=== PATIENT | female | born 1990 | race Caucasian/White ===

== ENCOUNTER 2017-12-19 10:46 | Day surgery (SDC) | payer MEDICAID, SELFPAY ==
[2017-12-19] VITALS (8 sets, daily range): BP systolic 95–125; BP diastolic 50–83; PULSE 77–103; RESP 16; TEMP 36.3–37.3; O2SAT 96–100; BMI 28.6
[2017-12-19 11:58] LABS: Pregnancy, Serum, hCG Quali. NEGATIVE Negative (0-9 Nonpreg)
--- NOTE | 2017-12-19 13:51 | DCINST_ITS ---
Discharge Diet: Light diet - advance as tolerated Discharge Activity: Return to Normal Activity Instructions: Shock Wave Lithotripsy Allergies/Adverse Reactions: Allergies hydrocodone bitartrate [From Vicodin] Adverse Reaction (Verified 11/25/17 11:57) Nausea/Vom/Diarrhea ibuprofen Adverse Reaction (Verified 11/25/17 11:57) ABDOMINAL PAIN Medications to take at Discharge Ciprofloxacin [Cipro] 500 mg PO BID #6 tab 12/19/17 Hydrocodone/Acetaminophen [[place] 5-325 Tablet] 1 ea PO Q4H PRN PRN 5 Days #14 tab 12/19/17 The following prescriptions were given: Hydrocodone/Acetaminophen [[place] 5-325 Tablet] 1 ea PO Q4H PRN PRN 5 Days #14 tab PRN Reason: Pain Ciprofloxacin [Cipro] 500 mg PO BID #6 tab Primary Care Physician: Ming Vail MD [Primary Care Provider] - Please Follow Up With: James Rodirguez MD When: please call to make an appointment.
[2017-12-19] MEDS: Lubricating Jelly 60 GM Tube 30 GM TOPICAL (13:58)
--- NOTE | 2017-12-19 14:26 | PCM.OPRPT ---
Problem List (1) Calculus of left kidney Status: Acute Report of Operation Date of Procedure: 12/19/17 Pre-Operative Diagnosis: Left kidney stone status post stent placement Post-Operative Diagnosis: Same Surgery/Procedure Performed:: Left ESWL and cystoscopy and left stent removal. Description of Surgical Findings:: 27-year-old female was taken back to the operating room after smooth induction of general anesthesia she was placed supine on the lithotripter table we then located the stone in the pelvis of the left kidney and delivered a total of 2500 shockwaves to the stone at the completion of the treatment the stone had broken up a little pieces but could not really visibly see any more significant fragments under x-ray. Patient was then positioned for cystoscopy. With the legs in stirrups. The urethra and vaginal area were prepped and draped in usual sterile fashion went into the bladder with a 21 [place] rigid cystourethroscope grabbed the existing stent and pulled it out. Then at this point we checked the kidney again under x-ray there is no major fragments are seen the stone were broken up really nicely patient anesthetic was reversed and she was taken back to the PACU in good condition she will follow-up in a few weeks with a KUB. Type of Anesthesia:: General Drains: removed stent - Admit VTE Documentation VTE Present on Admission: No VTE Mechan Device Prophylaxis: SCD's
[2017-12-19] MEDS: Ketorolac 15 MG/ML Vial IV (15:14)
== END 2017-12-19 16:27 | disposition home or self-care (01) ==
LOC: SDC 10:47 → AC 10:49
PROVIDERS: Anesthesiology; Family Provider Family Medicine; PCP Family Medicine; Visit Provider Urology
PROC: (CPT 50590; principal; 2017-12-19 12:40)
DX: N20.0 Calculus of kidney (principal); F17.200 Nicotine dependence, unspecified, uncomplicated
CPT/HCPCS: 00873; 50590; 84703; J7120; J2405

== ENCOUNTER → 2017-12-30 08:45 | Outpatient (CLI) | payer MEDICAID, SELFPAY | PROVIDERS: Family Provider Family Medicine; PCP Family Medicine; Visit Provider Nurse Practitioner Adult Health | DX: N20.0 Calculus of kidney (principal) ==

== ENCOUNTER → 2019-06-23 | Outpatient (CLI) | payer MEDICAID, SELFPAY ==
[2017-12-19 11:09] VITALS: BMI 28.6
[2019-06-24 10:00] LABS: Hepatitis B Surface Antigen Non-Reactive (Nonreactive)
[2019-06-24 10:05] LABS: Hepatitis C Antibody REACTIVE (Nonreactive)
[2019-06-24 13:31] LABS: AST(SGOT) 11 U/L (15-37); Alanine Aminotransfer ALT/SGPT 14 U/L (13-56); Albumin, Serum 3.3 g/dL (3.2-5.0); Alkaline Phosphatase 77 U/L (45-117); Bilirubin, Direct 0.09 mg/dL (0.00-0.30); Globulin 3.8 g/dL (2.2-4.2); Protein, Total 7.1 g/dL (6.4-8.2)
== END | disposition home or self-care (01) ==
LOC: LAB 14:13
PROVIDERS: Family Provider Family Medicine; PCP Family Medicine
DX: R63.0 Anorexia (principal); R53.81 Other malaise; R11.0 Nausea
CPT/HCPCS: 36415; 80076; 86803; 87340; 87521

== ENCOUNTER 2022-05-18 09:32 | Emergency (ER) | payer MEDICAID, SELFPAY ==
[2022-05-18 09:33] VITALS: BP 141/97; PULSE 93; RESP 16; TEMP 36.6; O2SAT 98; BMI 42.5
--- NOTE | 2022-05-18 09:42 | RAD_ITS ---
STUDY: X-RAY - LUMBAR SPINE REASON FOR EXAM: Female, 31 years old. Trauma TECHNIQUE: 4 view(s) of the lumbar spine were obtained. COMPARISON: Lumbar spine x-ray dated October 22, 2016 FINDINGS: Normal lumbar lordosis. There is no substantial scoliosis. There is a normal alignment of the vertebrae. Normal vertebral bodies minimal endplate spurring is present at several levels. The disc space is narrowed at the L1-L2 level. The remaining disc spaces are preserved. No fracture or compression deformity is seen. The soft tissue structures are unremarkable. RAD/L/S Spine Min 4 Views IMPRESSION: Minimal degenerative changes of the lumbar spine. Electronically Signed: Musa Farmer MD at 10:45 EDT ,
--- NOTE | 2022-05-18 09:43 | EDS_ITS ---
HPI History of Present Illness Chief Complaint: Head Injury Informant: patient Narrative Narrative: Patient was at a campsite yesterday. She slipped and fell on mud. She landed on her lower back and hit her head. No loss of consciousness. No visual change. No nausea or vomiting. No numbness tingling weakness upper or lower extremities. No change in urination or bowel habits. She has mild pain at the back of her head. Most of her pain is down in the low lumbar sacral area. But she is able to walk and move around. She has allergy to ibuprofen causing abdominal pain but she was taking Advil last night with no symptoms of discomfort. PFSH PFSH Medical History no medical history Home Medications ciprofloxacin HCl 500 mg tablet 500 mg PO BID #6 tabs 12/19/17 [Rx Last Taken Unknown] hydrocodone-acetaminophen 5-325mg 5mg-325mg 1 ea PO Q4H PRN PRN Pain 5 days #14 tabs 12/19/17 [Rx Last Taken Unknown] cyclobenzaprine 10 mg tablet 10 mg PO BID PRN muscle spasm #10 tabs 05/18/22 [Rx Last Taken Unknown] Allergy/AdvReac Type Severity Reaction Status Date / Time hydrocodone bitartrate AdvReac Nausea/Vom/ Verified 05/18/22 09:34 [From Vicodin] Diarrhea ibuprofen AdvReac ABDOMINAL Verified 05/18/22 09:34 PAIN Family History no significant family his Social History Smoking Status: Current every day smoker tobacco type: cigarettes ROS ROS ED Constitutional Constitutional ED: Denies fever(s) Eyes Eyes: Denies blurry vision or change in vision ENT ENT ED: Denies ear pain or rhinorrhea Cardiovascular Cardiovascular: Denies chest pain or palpitations Respiratory/Chest Respiratory/Chest: Denies dyspnea Gastrointestinal Gastrointestinal: Denies abdominal pain, nausea or vomiting Genitourinary Genitourinary ED: Denies dysuria, hematuria or urinary frequency Musculoskeletal Musculoskeletal: Reports back pain; Denies neck pain Neurologic Neurologic: Reports headache(s); Denies paresthesias or weakness Endocrine Endocrinology: Denies polydipsia or polyuria Hematologic/Lymphatic Hematologic/Lymphatic: Reports other Details: No anticoagulation. ; Denies easy bleeding or easy bruising Allergic/Immunologic Allergic/Immunologic ED: Denies urticaria EXAM Physical Exam Const Vital Signs: 05/18/22 09:33 Temperature 97.9 F Temperature Source Temporal Pulse Rate 93 Respiratory Rate 16 Blood Pressure 141/97 H Blood Pressure Mean 111 Pulse Ox 98 Oxygen Delivery Method Room Air Positive well nourished HEENT HEENT Narrative: There is mild scalp tenderness in the back but no step-off. I see no bruising at this time. atraumatic Eyes PERRL and EOMs intact bilaterally General Eye ED: Yes other Other Details: No photophobia. Range of motion is normal. Pupillary responses normal Neck full ROM Neck Narrative: No tenderness. No pain with. General: Negative for tenderness Resp normal respiratory effort and clear to auscultation bilaterally Cardio regular rhythm and no murmurs Rate: regular rate GI normal to inspection, nondistended, normoactive bowel sounds and non-tender Narrative: No CVA tender Back/Spine normal to inspection Back/Spine Narrative: There is tattoo in the lower back but I see no abrasions or contusions at this time. There is some mild nonfocal lower lumbar and upper sacral tenderness. No crepitance with motion. Gait is okay. She can get up off the bed move around easily. Extremity normal to inspection General Extremety ED: Negative for deformity General Extremity: Negative for deformity Neuro oriented x3 MDM MDM MDM Narrative Medical decision making narrative: 4 view x-ray lumbar spine read by me and read by radiology shows no sign of acute fracture. Patient will take Advil. She feels though she is getting some spasm I will try some muscle relaxants on her. We discussed reasons to return. Radiography Diagnostic Testing: Clinical Impression(s) from Imaging Studies Lumbar Spine X-Ray 05/18/22 09:42 IMPRESSION: Minimal degenerative changes of the lumbar spine. Electronically Signed: Musa Farmer MD at 10:45 EDT Reading Location ID and State: [facility] / [place] , Service support , Discharge Plan Triage Chief Complaint: Head Injury ED Provider: Jere Blackburn Dx/Rx/DC Orders Clinical Impression: Fall from slipping, Contusion of back, CHI (closed head injury) Instructions: ED Back Contusion Prescriptions: New cyclobenzaprine 10 mg tablet 10 mg PO BID PRN (Reason: muscle spasm) Qty: 10 0RF No Action hydrocodone-acetaminophen 1 EACH tablet 1 ea PO Q4H PRN PRN (Reason: Pain) 5 Days Qty: 14 0RF ciprofloxacin HCl 500 MG tablet 500 mg PO BID Qty: 6 0RF Primary Care Provider: Ming Vail Referrals: Ming Vail MD [Primary Care Provider] - 1 Week if not improving Disposition Disposition: Home, Self Care
== END 2022-05-18 11:04 | disposition home or self-care (01) ==
PROVIDERS: Emergency Provider Emergency Medicine; PCP Family Medicine; Visit Provider Emergency Medicine
DX: S09.90XA Unspecified injury of head, initial encounter (principal); S30.0XXA Contusion of lower back and pelvis, initial encounter; F17.210 Nicotine dependence, cigarettes, uncomplicated; W01.0XXA Fall on same level from slipping, tripping and stumbling without subsequent striking against object, initial encounter
CPT/HCPCS: 72110; 99282

== ENCOUNTER 2025-06-27 11:49 | Emergency (ER) | payer SELFPAY ==
[2025-06-27 11:50] VITALS: BP 142/104; PULSE 109; RESP 18; TEMP 36.4; O2SAT 98; BMI 47.1
[2025-06-27 12:52] LABS: Hematocrit 41.3 % (37-47); Hemoglobin 13.3 g/dL (12.0-15.0); Immature Granulocytes Count 0.100 X10^3/uL (0.0-0.0); Mean Corp Hgb Conc 32.2 g/dL (32-36); Mean Corpuscular Volume 83.1 fL (81-99); Mean Platelet Vol. 9.3 fl (6.2-12.0); NRBC Flagged by Analyzer 0 % (0-5); Platelet Count 483 K/mm3 (150-450); RBC Distribution Width CV 14.6 % (11.6-14.6); RBC Distribution Width SD 44.1 fl (35.1-43.9); Red Blood Count 4.97 M/mm3 (4.2-5.4); White Blood Count 16.4 K/mm3 (4.4-11.0)
[2025-06-27 13:13] LABS: AST(SGOT) 21 U/L (<=31); Alanine Aminotransfer ALT/SGPT 27 U/L (<=34); Albumin, Serum 3.6 g/dL (3.5-5.0); Alkaline Phosphatase 97 U/L (35-104); Anion Gap 11 (5-15); BUN 11 mg/dL (4-19); BUN/Creat Ratio 13.1 RATIO (10-20); Bilirubin, Direct 0.15 mg/dL (0.00-0.30); Calcium,Total 9.0 mg/dL (7.6-11.0); Carbon Dioxide 22.8 mmol/L (21.0-32.0); Chloride 102 mmol/L (98-108); Estimated Creatinine Clearance 119.65 ml/min (50-250); Globulin 3.3 g/dL (2.2-4.2); Glucose 116 mg/dL (70-99); Lipase 86 U/L (13-75); Potassium 3.6 mmol/L (3.3-5.1)
[2025-06-27 13:18] LABS: Mucous, Urine 0 SEEN /hpf (<or=2+); Red Blood Cells-Urine 0 SEEN /hpf (0-5)
[2025-06-27 13:31] LABS: Color, Urine Yellow (Yellow); Glucose, Dipstick Normal (Normal); Ketone-Dipstick Negative (Negative); Leukocyte Esterase-Dipstick 500 /ul (Negative); Nitrite-Dipstick Negative (Negative); Occult Blood-Urine 10 /ul (Negative); Protein-Dipstick 15 mg/dl (Negative); Specific Gravity, Urine 1.010 (1.002-1.030); Urine Bilirubin Dipstick Negative (Negative)
[2025-06-27] MEDS: 0.9% Normal Saline (1000mL) 1,000 ML 999 ML IV (13:32)
[2025-06-27 13:37] LABS: Squamous Epithelial Cells - UA 0-5 SEEN /hpf (5-10)
[2025-06-27 13:38] LABS: Internal QC Validated? YES +Cl - CLEAR BKGD; Pregnancy, Urine Negative Negative; Record Kit Lot#,Urine Preg 0000962302
--- NOTE | 2025-06-27 13:55 | CT_ITS ---
PROCEDURE: ABDOMEN/PELVIS W IV CONT ONLY 06/27/2025 REASON FOR EXAM: EPIGASTRIC ABD PAIN Nausea and diarrhea. History of kidney stones. TECHNIQUE: ABDOMEN/PELVIS W IV CONT ONLY Coronal and Sagittal reconstruction series were provided. CONTRAST: Isovue 3 7 VOLUME: 100 mL One or more dose reduction techniques were used (e.g., Automated exposure control, adjustment of the mA and/or kV according to patient size, use of iterative reconstruction technique. RADIATION DOSE SUMMARY: CTDlvol: 20.35 mGy DLP: 1363.79 mGycm COMPARISON: None FINDINGS: Lung bases: Minimal increased markings at the lung bases suggestive of linear atelectasis. Liver: Normal size. No mass. Gallbladder: Surgically absent. Spleen: Normal size. Pancreas: Normal size without evidence of mass surrounding inflammation or ductal dilation. Adrenals: Unremarkable Kidneys: Punctate calculus in the lower posterior pole of the right kidney. No evidence of hydronephrosis. No renal mass is seen. Bladder: Unremarkable Reproductive Organs: There is a 5.8 cm by 6.3 cm by 5 cm predominantly cystic mass in the right ovary. There is also evidence of a 2.4 cm cyst in the left ovary. The uterus appears to be unremarkable. Correlation with pelvic sonography recommended for further evaluation. Bowel: Unremarkable Appendix: Unremarkable Lymph nodes: None Vasculature: Mild diffuse atherosclerotic calcifications are noted. Peritoneum / Retroperitoneum: Unremarkable Bones: No significant abnormality is seen. CT/Abdomen/Pelvis W IV Cont ONLY IMPRESSION: 5.8 cm 6.3 cm 5 cm predominantly cystic mass in the right ovary. 2.4 cm cyst i n the left ovary. Correlation with pelvic sonogram recommended. Status post cholecystectomy. Reading Location: [id number]
[2025-06-27 14:30] VITALS: BP 142/92; PULSE 85; RESP 17; O2SAT 100
[2025-06-27 16:05] VITALS: BP 139/78; PULSE 80; RESP 15; TEMP 37.2; O2SAT 100
--- NOTE | 2025-06-27 16:12 | ED.VIS.GI ---
HPI HPI - GI History of Present Illness Chief Complaint: Abd Pain Informant: patient Narrative Narrative: Patient is a 35-year-old female with history of kidney stones, cholecystectomy presenting from home for epigastric abdominal pain, nausea and diarrhea. Symptoms started on Friday, 3 days ago. She was recently on a course of prednsione for sciatica and thinks her stomach. She had episode of vomiting on Friday but none since. She has been nauseous. States eats makes it better. It is worse with eating and she has early satiety feeling. States it is a burning pain that is constant which ultimately get a sharp pain in her epigastric region as well. She denies any black or blood in her stool. She did develop watery diarrhea today. Denies any fever. Any urinary symptoms. States the pain reminds her when she needed her gallbladder out. No other complaints or concerns at this time. [facility] Medical History (Updated 06/27/25 @ 16:[address] Yelena Ramesh, DO) Calculus of left kidney Hydronephrosis, left Left ureteral calculus Home Medications ?Medication ?Instructions ?Recorded ?Last Taken ?Type meclizine 25 mg chewable tablet 25 mg PO PRN DIZZINESS 06/27/25 Unknown History (Emy) omeprazole 20 mg capsule,delayed 20 mg PO BID #30 caps 06/27/25 Unknown Rx release ondansetron 4 mg disintegrating 4 mg PO Q8H PRN PRN Nausea #10 tabs 06/27/25 Unknown Rx tablet Allergy/AdvReac Type Severity Reaction Status Date / Time hydrocodone bitartrate (From AdvReac Nausea/Vom/ Verified 06/27/25 11:50 Vicodin) Diarrhea ibuprofen AdvReac ABDOMINAL Verified 06/27/25 11:50 PAIN Surgical History (Updated 06/27/25 @ 12:06 by Daniela Cruz) Hx of cholecystectomy Social History (Updated 06/27/25 @ 12:06 by Daniela Cruz) household members: spouse Smoking Status: Current every day smoker tobacco type: cigarettes ROS ROS ED Constitutional Constitutional ED: Denies chills or fever(s) Cardiovascular Cardiovascular: Denies chest pain Respiratory/Chest Respiratory/Chest: Denies cough or dyspnea Gastrointestinal Gastrointestinal: Reports abdominal pain, diarrhea, nausea and vomiting Musculoskeletal Musculoskeletal: Denies arthralgias or myalgias Integumentary Denies rash Neurologic Neurologic: Denies weakness Psychiatric Psychiatric: Denies suicidal thoughts EXAM Physical Exam Const Vital Signs: 06/27/25 11:50 06/27/25 14:30 06/27/25 16:05 Temperature 97.5 F L 98.9 F Temperature Source Temporal Pulse Rate 109 H 85 80 Respiratory Rate 18 17 15 Blood Pressure 142/104 H 142/92 H 139/78 H Blood Pressure Mean 116 108 98 Pulse Ox 98 100 100 Oxygen Delivery Method Room Air Room Air Positive well nourished and well developed General Appearance ED: well developed and NAD; Negative for pallor HEENT Reports moist mucous membranes Eyes General Eye ED: Negative for scleral icterus Neck supple Resp normal respiratory effort and clear to auscultation bilaterally Cardio regular rate and regular rhythm GI non-distended GI Narrative: Negative Prince sign Auscultation: normoactive bowel sounds Palpation: soft and tender epigastric; Negative for guarding, rigid or mass Neuro moves all extremities Sensorium / Orientation: alert Motor Exam: Negative for general weakness Psych mental status grossly normal and thought process normal Skin no wounds General Skin Exam: Negative for jaundice or pallor MDM MDM MDM Narrative Medical decision making narrative: Patient evaluated for nausea, vomiting x 1, diarrhea that started today and epigastric abdominal pain. Differential includes choledocholithiasis, pancreatitis, gastritis, peptic ulcer disease, small bowel obstruction and colitis as well as renal colic (suspect this is less likely). Patient given IV morphine, Zofran and fluids. Patient states that morphine action made her pain worse. Patient was given IV Dilaudid. Question if she had some spasm of her sphincter of Oddi made worse by the morphine. She does have a leukocytosis of 16.4 with no left shift. Had a CMP normal. Low suspicion for choledocholithiasis with these labs. Lipase is mildly elevated 86. Urinalysis shows 1+ bacteria but only 0-5 white blood cells. This is not consistent with infection. Urine is negative. CT of the abdomen and pelvis shows cyst of the right ovary however no other acute process. Patient was informed of the cyst and need for gynecology follow-up. She is not tender in her right lower quadrant. And counseled on return precautions including severe pain in that area because of risk of torsion. Counseled on the need for outpatient follow-up as well to ensure that she does not have a malignancy. Suspect it is more of a physiologic cyst however. Patient is also given GI cocktail with improvement of her symptoms. Did consider C. difficile however she is only on diarrhea for 1 day with no fever and no further diarrhea in the emergency room. Son report any recent antibiotics. Patient given GI cocktail with improvement of her symptoms. Patient be discharged home to follow-up with GI. Started on PPI therapy. And Zofran. Given return precautions. She is agreeable plan of care. Lab Data Attestation: I reviewed the patient's lab results. Labs: Laboratory Results - last 24 hr 06/27/25 06/27/25 12:45 13:12 WBC 16.4 H RBC 4.97 Hgb 13.3 Hct 41.3 MCV 83.1 MCH 26.8 L MCHC 32.2 RDW Std Deviation 44.1 H RDW Coeff of Dwain 14.6 Plt Count 483 H MPV 9.3 Immature Gran % (Auto) 0.600 Neut % (Auto) 71.0 H Lymph % (Auto) 18.5 L Catron % (Auto) 7.1 Eos % (Auto) 2.1 Baso % (Auto) 0.7 Absolute Neuts (auto) 11.6 H Absolute Lymphs (auto) 3.04 Nucleated RBC % 0 Sodium 136 Potassium 3.6 Chloride 102 Carbon Dioxide 22.8 Anion Gap 11 BUN 11 Creatinine 0.81 Estim Creat Clear Calc 119.65 Est GFR (MDRD) Non-Af 96 BUN/Creatinine Ratio 13.1 Glucose 116 H Calcium 9.0 Total Bilirubin 0.32 Direct Bilirubin 0.15 AST 21 ALT 27 Alkaline Phosphatase 97 Total Protein 7.0 Albumin 3.6 Globulin 3.3 Lipase 86 H Urine Color Yellow Urine Clarity Sl. Cloudy Urine pH 6.0 Ur Specific [place] 1.010 Urine Protein 15 H Urine Glucose (UA) Normal Urine Ketones Negative Urine Occult Blood 10 H Urine Nitrite Negative Urine Bilirubin Negative Urine Urobilinogen Normal Ur Leukocyte Esterase 500 H Urine RBC 0 SEEN Urine WBC 0-5 SEEN Ur Squamous Epith Cells 0-5 SEEN Urine Bacteria 1+ Urine Mucus 0 SEEN Urine Test Negative Radiography Diagnostic Testing: Clinical Impression(s) from Imaging Studies Abdomen/Pelvis CT 06/27/25 13:55 IMPRESSION: 5.8 cm 6.3 cm 5 cm predominantly cystic mass in the right ovary. 2.4 cm cyst in the left ovary. Correlation with pelvic sonogram recommended. Status post cholecystectomy. Reading Location: [id number] Discharge Plan Triage Chief Complaint: Abd Pain ED Provider: Yelena Ramesh Dx/Rx/DC Orders Clinical Impression: Abdominal pain, epigastric, Diarrhea, Leukocytosis, Ovarian cyst Instructions: ED Diarrhea, Unknown Cause, ED Ovarian Cyst, ED Epigastric Pain Uncertain Cause Prescriptions: New ondansetron 4 mg tablet,disintegrating 4 mg PO Q8H PRN PRN (Reason: Nausea) Qty: 10 0RF omeprazole 20 mg capsule,delayed release(DR/EC) 20 mg PO BID Qty: 30 0RF No Action meclizine [Bonine] 25 mg tablet,chewable 25 mg PO PRN Primary Care Provider: Ming Vail Referrals: Ming Vail MD [Primary Care Provider] - Chapito Lane DO [Med Staff - Active Staff] - Bambi Anthony MD [Med Staff - Active Staff] - Activity Restrictions/Additional Instructions: White blood cell count was mildly elevated today. This could be associated with inflammation, acute stress of the body or infection. It is possible he could have some inflammation of your stomach causing your symptoms. Your CT shows a large cyst on the right ovary as well as a smaller cyst on the left ovary. Please follow-up with [facility] and family doctor for outpatient pelvic ultrasound for further evaluation of this and to ensure that it is not cancerous or a tumor. Please follow-up with a GI doctor for your abdominal symptoms. You have been started on an antacid medication to help with your stomach as well as Zofran medicine. You may take Pepto-Bismol [id number] to help with diarrhea and abdominal pain. Please be aware that it will discolor your stools black. Print Language: Citizen Of [place] Disposition Disposition: Home, Self Care Discharge Date/Time: 06/27/25 16:25
== END 2025-06-27 16:25 | disposition home or self-care (01) ==
PROVIDERS: Emergency Provider Emergency Medicine; PCP Family Medicine; Visit Provider Emergency Medicine
DX: R10.13 Epigastric pain (principal); R19.7 Diarrhea, unspecified; D72.829 Elevated white blood cell count, unspecified; F17.210 Nicotine dependence, cigarettes, uncomplicated; N83.201 Unspecified ovarian cyst, right side; R11.0 Nausea; Z90.49 Acquired absence of other specified parts of digestive tract
CPT/HCPCS: 74177; 80048; 80076; 81001; 81025; 83690; 85025; 96361; 96374; 96375; 99283; Q9967; A4216; J2405

== ENCOUNTER → 2025-07-21 | Outpatient (CLI) | payer BC, SELFPAY ==
--- NOTE | 2025-07-21 14:14 | US_ITS ---
PROCEDURE: PELVIC W/ TRANSVAGINAL 07/21/2025 REASON FOR EXAM: R/O TORSION TECHNIQUE: Procedure Code: USPELTVAG Modality: US Procedure: PELVIC W/ TRANSVAGINAL COMPARISON: CT abdomen and pelvis 06/27/2025 FINDINGS: Measurements: Uterus: 7.9 x 3.6 x 4.4 with a volume of 66.0 mL Endometrial Thickness: 8 mm Right Ovary: 8.1 x 7.7 x 6.2 cm with a volume of 203.6 mL. Left Ovary: 2.9 x 2.0 x 1.6 cm with a volume of 4.9 mL. Uterus: Normal size, myometrial echotexture, and contour. Endometrium: Unremarkable. Right ovary: Anechoic cyst measures 6.5 x 5.2 x 6.4 cm. Left ovary: Normal size and echotexture. Other: No large pelvic mass identified. Small amount of free fluid in the pelvic cul-de-sac. US/Pelvic w/ Transvaginal IMPRESSION: 1. Right ovarian cyst measures 6.5 cm. 2. No evidence of ovarian torsion. Reading Location: [facility]
== END | disposition home or self-care (01) ==
LOC: US 14:12
PROVIDERS: PCP Family Medicine; Referring Provider Obstetrics & Gynecology; Visit Provider Obstetrics & Gynecology
DX: R10.9 Unspecified abdominal pain (principal); N83.209 Unspecified ovarian cyst, unspecified side
CPT/HCPCS: 76830; 76856

== ENCOUNTER 2025-07-26 16:37 | Emergency (ER) | payer BC, SELFPAY ==
[2025-07-26 16:38] VITALS: BP 143/93; PULSE 125; RESP 24; TEMP 37; O2SAT 98; BMI 47.2
--- NOTE | 2025-07-26 16:49 | US_ITS ---
PROCEDURE: US TRANSVAGINAL NON- 07/26/2025 REASON FOR EXAM: RIGHT ADNEXAL PAIN, HISTORY 6 CM CYST, R/OH TORSIO TECHNIQUE: Procedure Code: USTVAG Modality: US Procedure: TRANSVAGINAL NON- COMPARISON: Pelvic ultrasound 07/21/2025. Abdominal CT 06/27/2025. FINDINGS: The uterus is retroverted/retroflexed, but appears normal in size and smooth in contour measuring approximately 5.6 x 4.1 x 4 cm. No discrete uterine myoma is seen. No abnormal collection within the uterine cavity. Endometrial stripe complex appears within normal limits measuring up to 0.8 cm. Redemonstrated right ovarian simple anechoic cyst measuring up to 7.1 x 6 x 4.6 cm. Left ovary has a normal sonographic appearance, measuring 2.8 x 1.9 x 1.2 cm. Blood flow is demonstrated within bilateral ovaries on color Doppler, no evidence of torsion. No adnexal mass. Trace nonspecific free fluid in the cul-de-sac. US/Transvaginal Non- IMPRESSION: 1. Redemonstrated simple right ovarian cyst measuring up to 7.1 cm. 2. No evidence for ovarian torsion on this exam. 3. Trace nonspecific free pelvic fluid in the cul-de-sac. Reading Location: [facility]
--- NOTE | 2025-07-26 16:53 | EX.ED.DYSGE1 ---
HPI History of Present Illness Chief Complaint: Abd Pain Detail of Chief Complaint: Congestion, right lower quadrant pain Informant: patient Onset/Context/Timing Onset: - (Suddenly worse this afternoon) Context: Sudden Onset Timing: Continuous Quality: Pain Location: Right lower quadrant/adnexa Current Severity: Moderate Maximum Severity: Severe Worsened by: Movement Relieved by: Nothing Associated Symptoms Associated Symptoms: Nausea and mild upper respiratory tract infectious symptoms Narrative Narrative: Patient a 35-year-old woman she had ultrasounds an outpatient on July 21, 2025. This ultrasound revealed a ovarian cyst measuring 6.5 cm in area there was no evidence of torsion at that time. The ultrasound findings were uterus that was 7.9 x 3.6 x 4.4 cm with a volume of 66 mL. The endometrium was thickened at 8 mm. Right ovary measured 8.1 x 7.7 x 6.2 cm with a volume of 203 mL. Left ovary was 2.9 x 2.0 x 1.6 cm with a volume of 4.9 mL per. Patient states she took a nap. She now has severe right lower quadrant adnexal pain. She denies fever or chills. She denies vomiting or diarrhea. She denies loss of appetite. She states she was placed on medicine to facilitate her menstruation. She has not in spite of completing the course of therapy. She is presently under Dr. Bambi Anthony's care. She denies dysuria, frequency, urgency or hematuria. She denies any back or flank pain. She denies pain referred to her shoulder. She denies orthostatic symptoms. Prior similar symptoms: Yes (Due to right ovarian cyst) Recent Illness/Hospitalization: No [facility] Medical History Calculus of left kidney Hydronephrosis, left Left ureteral calculus Home Medications ?Medication ?Instructions ?Recorded ?Last Taken ?Type meclizine 25 mg chewable tablet 25 mg PO PRN DIZZINESS 06/27/25 Unknown History (Emy) omeprazole 20 mg capsule,delayed 20 mg PO BID #30 caps 06/27/25 Unknown Rx release ondansetron 4 mg disintegrating 4 mg PO Q8H PRN PRN Nausea #10 tabs 06/27/25 Unknown Rx tablet medroxyprogesterone 10 mg tablet 10 mg PO QDAY #10 tabs 07/12/25 Unknown Rx (Provera) naproxen 500 mg tablet 500 mg PO BID #14 tabs 07/26/25 Unknown Rx Allergy/AdvReac Type Severity Reaction Status Date / Time hydrocodone bitartrate (From AdvReac Nausea/Vom/ Verified 07/26/25 16:38 Vicodin) Diarrhea ibuprofen AdvReac ABDOMINAL Verified 07/26/25 16:38 PAIN Family History Grandfather Cancer Grandmother Breast cancer Maternal Grandmother Breast cancer Paternal Surgical History Hx of cholecystectomy Social History household members: spouse current occupational status: employed current occupation: [employer] Smoking Status: Current every day smoker tobacco type: cigarettes alcohol intake: never substance use type: former substance user Date of last use: 7 years clean 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[employer] 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 ROS ROS ED Constitutional Constitutional ED: Denies chills, fever(s) or subjective Eyes Eyes: Denies blurry vision or change in vision ENT ENT ED: Reports sore throat; Denies ear pain or rhinorrhea Cardiovascular Cardiovascular: Denies chest pain or palpitations Respiratory/Chest Respiratory/Chest: Denies cough, dyspnea or dyspnea on exertion Gastrointestinal Gastrointestinal: Reports abdominal pain and nausea; Denies constipation, diarrhea, melena or vomiting Genitourinary Genitourinary ED: Denies dysuria, hematuria or urinary frequency Musculoskeletal Musculoskeletal: Denies arthralgias, back pain, myalgias or neck pain Integumentary Denies abscess, Abrasions or rash Hematologic/Lymphatic Hematologic/Lymphatic: Reports systems reviewed and no addt'l complaints, except as documented EXAM Physical Exam Const Vital Signs: 07/26/25 16:38 07/26/25 18:35 Temperature 98.6 F Temperature Source Temporal Pulse Rate 125 H 96 Respiratory Rate 24 H Blood Pressure 143/93 H 141/59 H Blood Pressure Mean 109 86 Pulse Ox 98 97 Oxygen Delivery Method Room Air Room Air Positive well nourished and well developed Constitutional Narrative: Patient's vital signs are marked for an elevated blood pressure of 143/93, heart rate of 125 and respiratory of 24. BMI is 47.2 General Appearance ED: well developed and NAD; Negative for pallor HEENT Reports TM's clear and dry mucous membranes HEENT Narrative: Head is atraumatic and normocephalic. Ears normal. Nares patent. Posterior pharynx is normal. Uvula is midline. There is no deviation tongue or protrusion Tympanic Membrane ED: Yes TM's clear Mouth ED: Yes dry mucous membranes Mouth: dry mucous membranes Eyes PERRL and EOMs intact bilaterally General Eye ED: Negative for pale conjunctiva or scleral icterus Neck no lymphadenopathy, supple and no JVD Resp normal respiratory effort and clear to auscultation bilaterally Cardio regular rhythm, S1 normal heart sound, S2 normal heart sound and no murmurs Rate: tachycardic GI normal to inspection, nondistended, normoactive bowel sounds, non-distended and no masses; Negative for non-tender or hepatosplenomegaly GI Narrative: Exam is limited due to body habitus. Auscultation: hypoactive bowel sounds Palpation: soft and tender RLQ (A couple of fingerbreadths below McBurney's point.) Narrative: There is no inguinal lymphadenopathy or palpable mass. Back/Spine no CVA tenderness Extremity normal to inspection General Extremety ED: Negative for edema or tenderness General Extremity: Negative for edema Neuro oriented x3, CN's II-XII intact bilaterally and no sensory deficits noted Motor Exam: strength 5/5 throughout Psych mental status grossly normal Skin no rashes or lesions noted, no wounds and skin turgor normal General Skin Exam: elasticity normal; Negative for jaundice or pallor MDM MDM MDM Narrative Medical decision making narrative: Differential diagnosis would be abdominal pain unknown etiology, ruptured ovarian cyst, ovarian torsion. Symptoms not consistent with ureteral/renal lithiasis, urinary tract infection. Doubt this represents appendicitis. Will obtain ultrasound of the pelvis to evaluate for torsion since the size of her cyst is a common size when torsion does occur. Patient was medicated with ketorolac for her pain. Furthermore the fact that it came on abruptly with no against appendicitis. Lab Data Labs: Laboratory Results - last 24 hr 07/26/25 17:50 Urine Color Yellow Urine Clarity Sl. Cloudy Urine pH 6.0 Ur Specific [place] 1.015 Urine Protein 30 H Urine Glucose (UA) Normal Urine Ketones Negative Urine Occult Blood Negative Urine Nitrite Negative Urine Bilirubin Negative Urine Urobilinogen 1 H Ur Leukocyte Esterase 25 H Urine RBC 0-5 SEEN Urine WBC 0-5 SEEN Ur Squamous Epith Cells 0-5 SEEN Urine Bacteria RARE Urine Mucus 1+ Radiography Diagnostic Testing: Clinical Impression(s) from Imaging Studies Transvaginal US 07/26/25 16:49 IMPRESSION: 1. Redemonstrated simple right ovarian cyst measuring up to 7.1 cm. 2. No evidence for ovarian torsion on this exam. 3. Trace nonspecific free pelvic fluid in the cul-de-sac. Reading Location: [facility] Treatment and Re-Evaluation :: Patient was informed of her results. Patient was discharged to home with NSAID for pain since she is a recovering addict. She is to follow-up with Dr. Bambi Anthony Discharge Plan Triage Chief Complaint: Abd Pain ED Provider: Eric Pineda Dx/Rx/DC Orders Clinical Impression: Cyst of right ovary, Right lower quadrant abdominal pain, Elevated blood-pressure reading without diagnosis of hypertension, BMI 45.0-49.9, adult Instructions: ED Ovarian Cyst Prescriptions: New naproxen 500 mg tablet 500 mg PO BID Qty: 14 0RF No Action meclizine [Bonine] 25 mg tablet,chewable 25 mg PO PRN ondansetron 4 mg tablet,disintegrating 4 mg PO Q8H PRN PRN (Reason: Nausea) Qty: 10 0RF omeprazole 20 mg capsule,delayed release(DR/EC) 20 mg PO BID Qty: 30 0RF medroxyprogesterone [Provera] 10 mg tablet 10 mg PO QDAY Qty: 10 9RF Primary Care Provider: Ming Vail Referrals: Ming Vail MD [Primary Care Provider] - Bambi Anthony MD [Med Staff - Active Staff] - 5-7 Days Print Language: Frisian Disposition Disposition: Home, Self Care
[2025-07-26 18:02] LABS: Color, Urine Yellow (Yellow); Glucose, Dipstick Normal (Normal); Ketone-Dipstick Negative (Negative); Leukocyte Esterase-Dipstick 25 /ul (Negative); Nitrite-Dipstick Negative (Negative); Occult Blood-Urine Negative /ul (Negative); Protein-Dipstick 30 mg/dl (Negative); Specific Gravity, Urine 1.015 (1.002-1.030); Urine Bilirubin Dipstick Negative (Negative)
[2025-07-26 18:13] LABS: Mucous, Urine 1+ /hpf (<or=2+); Red Blood Cells-Urine 0-5 SEEN /hpf (0-5); Squamous Epithelial Cells - UA 0-5 SEEN /hpf (5-10)
[2025-07-26 18:35] VITALS: BP 141/59; PULSE 96; O2SAT 97
[2025-07-26 19:04] VITALS: BP 141/59; PULSE 96; RESP 24; TEMP 37; O2SAT 97
== END 2025-07-26 19:07 | disposition home or self-care (01) ==
PROVIDERS: Emergency Provider Emergency Medicine; PCP Family Medicine; Visit Provider Emergency Medicine
DX: R10.31 Right lower quadrant pain (principal); N83.291 Other ovarian cyst, right side; R03.0 Elevated blood-pressure reading, without diagnosis of hypertension; F17.210 Nicotine dependence, cigarettes, uncomplicated; Z90.49 Acquired absence of other specified parts of digestive tract
CPT/HCPCS: 76830; 81001; 96374; 99282; A4216

== ENCOUNTER 2025-08-02 11:17 | Day surgery (SDC) | payer OTHER, SELFPAY ==
[2025-08-02] VITALS (9 sets, daily range): BP systolic 125–153; BP diastolic 78–95; PULSE 77–87; RESP 14–20; TEMP 36.1–36.6; O2SAT 91–97; BMI 46.8
[2025-08-02 11:49] LABS: Internal QC Validated? YES +Cl - CLEAR BKGD; Pregnancy, Urine Negative Negative; Record Kit Lot#,Urine Preg 0000964736
[2025-08-02] MEDS: Lactated Ringers 1,000 ML 15 ML IV (12:38)
[2025-08-02 13:14] LABS: Hematocrit 38.1 % (37-47); Hemoglobin 12.2 g/dL (12.0-15.0); Mean Corp Hgb Conc 32.0 g/dL (32-36); Mean Corpuscular Volume 82.6 fL (81-99); Mean Platelet Vol. 9.4 fl (6.2-12.0); Platelet Count 477 K/mm3 (150-450); RBC Distribution Width CV 14.3 % (11.6-14.6); RBC Distribution Width SD 42.7 fl (35.1-43.9); Red Blood Count 4.61 M/mm3 (4.2-5.4); White Blood Count 13.9 K/mm3 (4.4-11.0)
--- NOTE | 2025-08-02 13:34 | PCM.HP.BLA ---
History and Physical Date of Admission: 08/02/25 Intake Vital Signs 07/26/2516:38 08/01/2515:55 Height 5 ft 3 in 5 ft 3 in Weight: 264 lb 8 oz BMI 46.8 BP 122/85 H Intake Visit Reasons: ER f/u large ovarian cyst r/s from 07/29 Chief Complaint: ER F/u Nurse'S Aides Teacher Required: No Is patient in pain?: No Allergies hydrocodone bitartrate (From Vicodin) Adverse Reaction (Verified 08/01/25 15:57) Nausea/Vom/Diarrhea ibuprofen Adverse Reaction (Verified 08/01/25 15:57) ABDOMINAL PAIN Medications ?Medication ?Instructions ?Recorded ?Confirmed ?Type meclizine 25 mg chewable tablet 25 mg PO PRN DIZZINESS 06/27/25 08/01/25 History (Emy) omeprazole 20 mg capsule,delayed 20 mg PO BID #30 caps 06/27/25 08/01/25 Rx release ondansetron 4 mg disintegrating 4 mg PO Q8H PRN PRN Nausea #10 tabs 06/27/25 08/01/25 Rx tablet medroxyprogesterone 10 mg tablet 10 mg PO QDAY #10 tabs 07/12/25 08/01/25 Rx (Provera) naproxen 500 mg tablet 500 mg PO BID #14 tabs 07/26/25 08/01/25 Rx Post menopausal: No Patient : No : No PFSH Medical History Calculus of left kidney Hydronephrosis, left Left ureteral calculus Surgical History Hx of cholecystectomy Family History Grandfather Cancer Grandmother Breast cancer Maternal Grandmother Breast cancer Paternal Social History household members: spouse current occupational status: employed current occupation: [employer] Smoking Status: Current every day smoker tobacco type: cigarettes alcohol intake: never substance use type: former substance user Date of last use: 7 years clean 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 She was in the ER over the weekend for worsenign pain. The cyst was essentially unchanged but she is requesting surgical management over conservative observation. ultrasound shows: FINDINGS: The uterus is retroverted/retroflexed, but appears normal in size and smooth in contour measuring approximately 5.6 x 4.1 x 4 cm. No discrete uterine myoma is seen. No abnormal collection within the uterine cavity. Endometrial stripe complex appears within normal limits measuring up to 0.8 cm. Redemonstrated right ovarian simple anechoic cyst measuring up to 7.1 x 6 x 4.6 cm. Left ovary has a normal sonographic appearance, measuring 2.8 x 1.9 x 1.2 cm. Blood flow is demonstrated within bilateral ovaries on color Doppler, no evidence of torsion. No adnexal mass. Trace nonspecific free fluid in the cul-de-sac. US/Transvaginal Non- IMPRESSION: 1. Redemonstrated simple right ovarian cyst measuring up to 7.1 cm. 2. No evidence for ovarian torsion on this exam. 3. Trace nonspecific free pelvic fluid in the cul-de-sac. History 1 Elective abortions Hx Para Spontaneous abortions 1 Hx # Term Pregnancies Ectopic pregnancies Hx # Pregnancies Multiple births # of living children 0 ROS Const ROS Unobtainable: All systems reviewed & are unremarkable except as noted in H Resp Resp: Reports system reviewed and no additional complaints, except as documented; Denies cough GI GI: Reports as per HPI Psych Psych: Reports system reviewed and no additional complaints, except as documented Exam Const General: cooperative, healthy appearing, comfortable and no acute distress Resp Effort & Inspection: normal respiratory effort Skin General: no rashes or lesions noted Psych Appearance: grossly normal Speech and Movement: speech and movement normal Coding Level of Care Code Off vis,est,level 4 Diagnoses Cyst of right ovary N83.201 Assessment and Plan Assessment and Plan (1) Cyst of right ovary: Status: Acute Plan: After discussing the patient's diagnosis and treatment plan options, patient wishes to proceed with surgical management. I have discussed with the patient the risks, benefits, and alternatives of the procedure which include but are not limited to risks of anesthesia, bleeding, infection, possible damage to bowel, bladder, or surrounding vasculature which could lead to additional surgery to evaluate any complications. Patient agrees to procedure and wishes to proceed. ACOG/uptodate references given for additional information regarding procedure. plan is for urgent laparoscopic ovarian cystectomy due to pain, will fit her in tomorrow for surgery.
--- NOTE | 2025-08-02 13:50 | PRE.ANES_ITS ---
ASA Classification* ASA Classification ASA Classification: 3 Assessment & Plan Anesthesia* Anesthesia Assessment Anesthesia Assessment: Discussed sedation and/or anesthesia options, risks, benefits, and alternatives with patient/parents/legal guardian/POA. Questions invited. The patient/parents/legal guardian/POA seems to understand and agrees to proceed with anesthesia plan. Reviewed the physical assessment, medical history, allergy history and patient home medications list prior to surgery/procedure/anesthetic and documented any changes. Performed airway and anesthesia risk assessments. Anesthesia Type Anesthesia Type: General History Source History Obtained from:: Patient and Chart Anesthesia Focused Assessment* Temperature: 97.8 F Pulse Rate: 78 Blood Pressure: 125/78 Respiratory Rate: 16 Pulse Ox: 97 Oxygen Delivery Method: Room Air Airway Assessment Mouth opens: >3 cm Mallampati Score: I Teeth Condition: Intact and Upper Neck Range of motion (ROM): Full ROM Comment: Edentulous upper teeth. Bottom teeth are intact Labs Anesthesia Preop lab: CBC WBC, (4.4-11.0) 13.9 K/mm3 H Today, 12:55 RBC, (4.2-5.4) 4.61 M/mm3 Today, 12:55 Hgb, (12.0-15.0) 12.2 g/dL Today, 12:55 Hct, (37-47) 38.1 % Today, 12:55 Plt Count, (150-450) 477 K/mm3 H Today, 12:55 CHEMISTRY Potassium, (3.3-5.1) 3.6 mmol/L 06/27/25, 12:45 Sodium, (133-145) 136 mmol/L 06/27/25, 12:45 BUN, (4-19) 11 mg/dL 06/27/25, 12:45 Creatinine, (0.70-1.20) 0.81 mg/dL 06/27/25, 12:45 Glucose, (70-99) 116 mg/dL H 06/27/25, 12:45 COAG Urine Test Negative Negative Today, 11:40 Pre-Assessment Diagnosis/Proposed Procedure Planned Operative Procedure(s): Right laparoscopic ovarian cystectomy Anesthesia History 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 When Was Last Pacemaker Check QUESTION #4 FULL TEXT: You/Your Family Experience fever (hyperthermia) with Anesthesia Last Oral Intake Last Oral intake: Last Oral Intake NPO since 23:30 08/02/25 12:33 Meds taken in AM with sips of No 08/02/25 12:33 water? Meds patient instructed to take am of surgery PONV PONV - venetian blind mechanic: PONV - venetian blind mechanic Female HX of Motion Sickness HX of N/V After Surgery Non-Smoker Duration of Surgery greater than 60 minutes Number of Risk Factors PONV Score Height & Weight Height & Weight: Anesthesia: Height & Weight Height 5 ft 3 in 08/02/25 12:33 Weight: 120 kg 08/02/25 12:33 Body Mass Index (BMI) 46.8 08/02/25 12:33 Respiratory Assessment Respiratory Assessment - venetian blind mechanic: Respiratory Tract Infection Hx - venetian blind mechanic Hx Respiratory Tract Infection No 09/19/23 15:47 STOP Sleep Apnea STOP Sleep Apnea - venetian blind mechanic: STOP Sleep Apnea - venetian blind mechanic Hx Hypertension No 09/19/23 15:47 Hx Sleep Apnea No 09/19/23 15:47 CPAP No 09/19/23 15:47 BIPAP No 09/19/23 15:47 Do you snore loudly (louder than talking or can be heard Do you often feel tired/ fatigued/ sleepy during daytime? Has anyone observed you stop breathing during sleep? STOP Results QUESTION #5 FULL TEXT : Do you snore loudly (louder than talking or can be heard through closed doors)? 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 Specify any problems Hx of Preganancy in last 3 Months Nurse Filling Out Transfusion & Questions: Date: Time: Patient unable to answer at this time (ie. confused, unrespo /Reproduction History /Reproductive History - venetian blind mechanic: /Reproductive Hx- venetian blind mechanic Hx Now Gestational Age (in weeks): EDC: Hx Hx Para Hx Section SAB No 08/01/25 15:58 Active Medications Active Medications: Current Medications Generic Name Dose Route Start Last Admin Trade Name Freq PRN Reason Stop Dose Admin Lactated Ringer's 1,000 mls @ 15 mls/hr 08/02/25 11:45 08/02/25 12:38 IV 15 mls/hr .Q48H ASHLEE Administration PFSH Medical History Substance abuse Hepatitis Migraine headache Smoker Calculus of left kidney Hydronephrosis, left Left ureteral calculus Home Medications ?Medication ?Instructions ?Recorded ?Last Taken ?Type meclizine 25 mg chewable tablet 25 mg PO PRN DIZZINESS 06/27/25 07/26/25 History (Emy) ondansetron 4 mg disintegrating 4 mg PO Q8H PRN PRN Na usea #10 tabs 06/27/25 07/31/25 Rx tablet naproxen sodium 220 mg capsule 220 mg PO BID PRN pain 08/02/25 07/31/25 History (Adonis) Allergy/AdvReac Type Severity Reaction Status Date / Time hydrocodone bitartrate (From AdvReac Nausea/Vom/ Verified 08/02/25 12:19 Vicodin) Diarrhea ibuprofen AdvReac ABDOMINAL Verified 08/02/25 12:19 PAIN Family History Grandfather Cancer Grandmother Breast cancer Maternal Grandmother Breast cancer Paternal Surgical History Hx of cholecystectomy Social History household members: spouse housing: house current occupational status: employed current occupation: [employer] Smoking Status: Current every day smoker tobacco type: cigarettes alcohol intake: never substance use type: former substance user Date of last use: 7 years clean 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
--- NOTE | 2025-08-02 14:00 | OV_PTH ---
PATIENT: KELSI KOCH LOC: [facility] U#:[id number] AGE/SX: 35/F ROOM: RE08/02/[address]: Dr. Angelia Garcia DO : 1990 BED: DIS: 08/02/2025 SPEC #: [id number] RECD: 08/02/25 18:19 STATUS: BETZY RELiam #: [id number] ELANA: 08/02/25 14:[address]: Angelia Garcia DEPT: SURGICAL PATHOLOGY RECD BY: La Goss ENTERED: 08/03/25 08:30 SP TYPE: OVARY OTHR DR: Dr. Ming Vail MD Tissues: OVARIAN CYST Procedures: Surgery Specimen Level IV HEADER OPERATION: Laparoscopic ovarian cystectomy PRE-OP DIAGNOSIS: Cyst of right ovary TISSUE SUBMITTED: A- Right ovarian cyst wall MICROSCOPIC DIAGNOSIS A. Right ovary, cyst wall, laparoscopic ovarian cystectomy: * Fibrotic cyst wall with scattered calcifications, consistent with simple cyst. * A cyst lining epithelium is not observed (attenuated). * No malignant change is seen in these sections. MICROSCOPIC DESCRIPTION Slides are reviewed. GROSS DESCRIPTION A. Received in formalin labeled with the patient's name and date of . Designated as right ovarian cyst wall are 3 irregular, heavily cauterized, pink-purple to white fibrotic and slightly wrinkled tissue fragments, collectively 1.9 g and 3.3 x 3.2 x 0.6 cm in aggregate. No definitive excrescences/ovarian parenchyma are grossly identified. Instructional Design Consultant sections are submitted in 1 cassette. MN 08/03/2025 CPT:[id number]
[2025-08-02] MEDS: Midazolam 2 MG/2 ML Syringe IV (15:07)
[2025-08-02] MEDS: fentaNYL 100 MCG/2 ML Ampul IV (15:14)
[2025-08-02] MEDS: Lidocaine 1% (5 ml sdv) 5 ML Vial IV (15:14)
--- NOTE | 2025-08-02 16:35 | PCM.POST.ANE ---
Anesthesia: Postop Eval I Current Vital Signs Temperature: 96.9 F Pulse Rate: 87 Blood Pressure: 153/94 Respiratory Rate: 20 Pulse Ox: 93 Oxygen Delivery Method: Nasal Cannula Oxygen Flow Rate (L/min): 2 Assessment Airway patent: Yes Spontaneous unlabored respirations: Yes Mental status: Awake and Calm nausea: No Vomiting: No Anesthesia Complication: No Fluid Hydration Crystalloid volume administer (ml): 600 Total IV fluid infused: 600 Progress Note Anesthesia document: Postop Eval 1 completed: Yes
--- NOTE | 2025-08-02 16:36 | OP.PCM_ITS ---
Multi Select Codes Urinary/Genital Urinary/Genital CPT Codes: 89736 Laproscopic ablation endometriosis (laparoscopic ovarian cystectomy ) Operative Report (Standard) Operative Information Date of Procedure: 08/02/25 Pre-Operative Diagnosis: large right ovarian cyst, pelvic pain Post-Operative Diagnosis: large right ovarian cyst, pelvic pain Surgery/Procedure Performed: laparoscopic right ovarian cystectomy farm agent: Yes Stitching Machine Feeder Or Offbearer: Jaelyn Sanchez Tasks completed by assistant restaurant general manager: Closing and Other (holding camera ) Additional energy assistant?: No Type of Anesthesia: General RN Documented Start/Stop Times: Operation Date: 08/02/25 14:00 Case Time Into Pre-Op 08/02/25 11:37 Anesthesia Start 08/02/25 15:07 Into Room 08/02/25 15:07 Out of Pre-Op 08/02/25 15:20 Procedure Start 08/02/25 15:31 Procedure End 08/02/25 16:25 Anesthesia End 08/02/25 16:27 Out of Room 08/02/25 16:27 Into Recovery 08/02/25 16:29 Procedure Start Time: 15:31 Procedure Stop Time: 16:25 Select all DRAINS/GRAFTS/IMPLANTS that apply: None Estimated Blood Loss: 5cc Specimen collected: Yes Description of specimen(s) removed: right ovarian cyst wall Description of surgery: Was brought to the operating room and general anesthesia was administered. She was prepped and draped in the normal sterile fashion. She was placed in a dorsal supine position with her legs in stirrups. Weighted speculum was placed in the vagina and the anterior lip of the cervix was grasped with a single-tooth tenaculum the uterus sounded to 8 cm and a uterine manipulator was inserted into the uterus. The bladder was drained with a straight cath. Gloves were changed and attention was turned towards the abdomen. An infraumbilical skin incision was made with a scalpel and a 5 mm long trocar was inserted into the abdomen under direct visualization. Intraoperative images were made and CO2 gas was used to insufflate the abdomen. The patient was placed in Trendelenburg position and a left lower quadrant 5 mm trocar was inserted followed by a suprapubic 5 mm trocar. The large ovarian cyst on the right side was identified noted to be smooth and fluctuant. A suction aspirator was inserted into the ovary and 80 cc of clear fluid was suctioned from the ovary. A small incision was made in the ovary then and extended about 1 cm in length the ovarian cyst wall was noted to be very adherent to the ovary and was difficult to get started with the removal process. Eventually the cyst wall was peeled off and taken off in sections due to the strength of the wall. Irrigation was performed and excellent hemostasis was noted at this time the procedure was ended. Specimen was passed off for pathology analysis. The CO2 gas was turned off and the trocars were removed from the abdomen and closed with a 4-0 Monocryl subcuticular stitch. The uterine manipulator was removed without difficulty. The patient tolerated the procedure well sponge lap needle counts were correct x 2 and she is now being brought to the recovery room in stable condition Surgical Findings: Right ovarian simple cyst measuring approximately 7 cm. Complications Complications: No Admit VTE Documentation VTE Present on Admission: Yes VTE Mechan Device Prophylaxis: SCD's VTE Pharm Prophylaxis ordered?: No
[2025-08-02] MEDS: Ketorolac 30 MG/ML Syringe IV (16:46)
--- NOTE | 2025-08-02 16:51 | PCM.DC ---
Discharge Instructions DC O2, CPAP, BIPAP needs Home O2 Discharge instructions: No Dressing / Incision Discharge Activity: Return to Normal Activity, May Not Drive (for two weeks or while taking narcotic pain medications.), May Shower and May Take a Tub Bath (in 7 days) May resume sexual activity in: 1 week Weight Bearing Status: Full weight bearing Dressing / Incision Call your doctor if you observe: Using more than 1 pad per hour, Shortness of breath, Chest pain and Uncontrolled pain Suture Line Care: Avoid Pulling/Pushing and Avoid Pinching/Bending Remove Dressing in: 1 week (if present) Cleanse incision/area with: Soap & Water and Keep Dressing Clean & Dry Follow Up Care Please Follow Up With: Angelia Garcia DO When: Call to make an appointment with your doctor for a follow up incision check in 1-2 weeks. Test Results: Test results from this visit will be discussed in further detail at your follow-up appointment, if applicable. Discharge Plan Admission Primary Reason for Your Visit: laparoscopic right ovarian cystectomy Attending Provider: Angelia Garcia Primary Care Provider: Ming Vail Instructions Print Language: [place] Discharge Orders/Prescriptions Prescriptions: New cyclobenzaprine 10 mg tablet 10 mg PO TID PRN (Reason: muscle spasm) Qty: 20 0RF No Action naproxen sodium [Aleve] 220 mg capsule 220 mg PO BID PRN (Reason: pain) meclizine [Bonine] 25 mg tablet,chewable 25 mg PO PRN ondansetron 4 mg tablet,disintegrating 4 mg PO Q8H PRN PRN (Reason: Nausea) Qty: 10 0RF Referrals / Follow Up: Ming Vail MD [Primary Care Provider, Family Practice] Disposition Disposition (needs filled in before D/C Order can be placed): Home, Self Care
--- NOTE | 2025-08-02 17:53 | POSTOPAN2_ITS ---
Anesthesia Postop Eval I Sum Postop Eval Completion status Anesthesia document: Postop Eval 1 completed: Yes Anesthesia Postop Eval I Summary Anesthesia Postop Eval I Summary: Anesthesia Postop Eval I: Assessment Summary Airway patent Yes 08/02/25 16:36 [email or web address] Spontaneous unlabored Yes 08/02/25 16:36 [email or web address] respirations Mental status Awake,Calm 08/02/25 16:36 [email or web address] nausea No 08/02/25 16:36 [email or web address] Vomiting No 08/02/25 16:36 [email or web address] Anesthesia Postop Eval I: Fluid Summary Crystalloid volume administer 600 08/02/25 16:36 [email or web address] (ml) Colloids volume administered ( ml) Blood Product volume administered (ml) Total IV fluid infused 600 08/02/25 16:36 [email or web address] Anesthesia Postop Eval I: Summary Notes Anesthesia Complication No 08/02/25 16:36 [email or web address] Anesthesia Complication Comment: Post-operative progress note Anesthesia: Postop Eval II Evaluation Mental status: Awake and Calm Pain Level: 2 nausea: No Vomiting: No Complications Anesthesia Complication: No
--- NOTE | 2025-08-02 17:53 | PCM.POSTANE2 ---
Anesthesia Postop Eval I Sum Postop Eval Completion status Anesthesia document: Postop Eval 1 completed: Yes Anesthesia Postop Eval I Summary Anesthesia Postop Eval I Summary: Anesthesia Postop Eval I: Assessment Summary Airway patent Yes 08/02/25 16:36 [email or web address] Spontaneous unlabored Yes 08/02/25 16:36 [email or web address] respirations Mental status Awake,Calm 08/02/25 16:36 [email or web address] nausea No 08/02/25 16:36 [email or web address] Vomiting No 08/02/25 16:36 [email or web address] Anesthesia Postop Eval I: Fluid Summary Crystalloid volume administer 600 08/02/25 16:36 [email or web address] (ml) Colloids volume administered ( ml) Blood Product volume administered (ml) Total IV fluid infused 600 08/02/25 16:36 [email or web address] Anesthesia Postop Eval I: Summary Notes Anesthesia Complication No 08/02/25 16:36 [email or web address] Anesthesia Complication Comment: Post-operative progress note Anesthesia: Postop Eval II Evaluation Mental status: Awake and Calm Pain Level: 2 nausea: No Vomiting: No Complications Anesthesia Complication: No
== END 2025-08-02 17:58 | disposition home or self-care (01) ==
LOC: SDC 11:19 → AC 11:20
PROVIDERS: Anesthesiology; PCP Family Medicine; Referring Provider Obstetrics & Gynecology; Visit Provider Obstetrics & Gynecology
PROC: (CPT 58720; principal; 2025-08-02 13:45)
DX: N83.201 Unspecified ovarian cyst, right side (principal); F17.210 Nicotine dependence, cigarettes, uncomplicated; Z79.899 Other long term (current) drug therapy
CPT/HCPCS: 58662; 00840; 81025; 85027; 86850; 86900; 86901; 88305; J2405